=== PATIENT | female | born 1985 | race Caucasian/White ===

== ENCOUNTER 2017-03-06 21:14 | Emergency (ER) | payer OTHER | END 2017-03-06 23:18 | disposition home or self-care (01) | LOC: ER 21:14 | DX: O99.513 Diseases of the respiratory system complicating pregnancy, third trimester (principal); Z3A.35 35 weeks gestation of pregnancy; R11.2 Nausea with vomiting, unspecified; R50.9 Fever, unspecified; J02.9 Acute pharyngitis, unspecified; R51 Headache; M79.1 Myalgia; B34.9 Viral infection, unspecified; Z20.828 Contact with and (suspected) exposure to other viral communicable diseases; G62.9 Polyneuropathy, unspecified | CPT/HCPCS: 87400; 99283 ==

== ENCOUNTER 2017-07-30 16:11 | Emergency (ER) | payer OTHER ==
[2017-07-30 17:37] LABS: BASO % 0.4 % (0.1-1.2); EOS # 0.1 10_X3_uL (0.0-0.4); EOS % 1.6 % (0.7-5.8); GRAN # 4.1 10_X3_uL (1.6-6.1); GRAN % 60.6 % (34.0-71.1); HEMATOCRIT 32.8 % (34-45); HEMOGLOBIN 10.8 g/dL (11.2-15.7); MEAN CORPUSCULAR HEMOGLOBIN 27.3 pg (27.0-33.0); MEAN CORPUSCULAR HGB CONC 32.9 g/dL (32.0-36.0); MEAN CORPUSCULAR VOLUME 82.8 fL (79-95); MONO # 0.6 10_X3_uL (0.2-0.9); MONO % 8.4 % (4.7-12.5); PLATELET COUNT 453 x10_3/uL (182-369); RED BLOOD COUNT 3.96 x10_6/uL (3.9-5.2); RED CELL DISTRIBUTION WIDTH 14.4 % (11.7-14.4); WHITE BLOOD COUNT 6.8 x10_3/uL (4.0-10.0)
[2017-07-30 17:54] LABS: URINE BILIRUBIN NEGATIVE (NEGATIVE); URINE BLOOD NEGATIVE (NEGATIVE); URINE GLUCOSE (UA) NORMAL (NORMAL); URINE KETONE TRACE (NEGATIVE); URINE LEUKOCYTE ESTERASE 1+ (NEGATIVE); URINE NITRATE NEGATIVE (NEGATIVE); URINE PROTEIN TRACE (NEGATIVE)
[2017-07-30 17:55] LABS: ALBUMIN 4.2 gm/dL (3.4-5.0); ALKALINE PHOSPHATASE 74 U/L (50-136); ALT/SGPT 43 U/L (3.5-33.9); AST/SGOT 25 U/L (7.04-26.96); BLOOD UREA NITROGEN 10 mg/dL (7-18); CALCIUM 9.1 mg/dL (8.7-10.7); CARBON DIOXIDE 22 mmol/L (21-32); CREATINE KINASE 83 U/L (21-215); CREATININE 0.6 mg/dL (0.6-1.3); GLUCOSE,RANDOM 92 mg/dL (70-99); POTASSIUM 3.8 mmol/L (3.5-5.1); SODIUM 135 mmol/L (136-145); TOTAL PROTEIN 7.6 gm/dL (6.4-8.2)
[2017-07-30 18:05] LABS: URINE BACTERIA 1+ (NONE SEEN); URINE RBC 0-5 /[HPF] (0-2); URINE SQUAMOUS EPITHELIAL CELL 0-10 /[HPF] (NONE SEEN)
== END 2017-07-30 18:41 | disposition home or self-care (01) ==
LOC: ER 16:11
PROVIDERS: Internal Medicine
DX: N39.0 Urinary tract infection, site not specified (principal); R53.1 Weakness; Z33.1 Pregnant state, incidental
CPT/HCPCS: 36415; 80053; 81001; 81025; 82550; 82553; 85025; 85379; 87086; 93005; 99284-25